=== PATIENT | female | born 1980 | race Caucasian/White ===

== ENCOUNTER 2017-10-20 23:30 | Emergency (ER) | payer OTHER ==
[2017-10-20] MEDS ORDERED: ONDANSETRON INJ 2 MG/ML 2 ML VIAL ONE (23:48)
[2017-10-20] MEDS ORDERED: LORAZEPAM 2 MG/ML 1 ML VIAL ONE (23:49)
[2017-10-20] MEDS ORDERED: SODIUM CHLORIDE 0.9% 500ML 500 ML IV STA (23:59)
[2017-10-21 00:02] VITALS: O2SAT 94
[2017-10-21] MEDS ORDERED: LORAZEPAM 2 MG/ML 1 ML VIAL IV STA ×2 (00:08→01:10)
[2017-10-21 00:14] LABS: BASO % 0.5 %; BASO ABS # 0.04 K/uL (0-0.2); EOS % 0.7 %; EOS ABS # 0.05 K/uL (0-0.5); HEMATOCRIT 40.1 % (37-47); HEMOGLOBIN 13.7 g/dL (12.0-16.0); IG# 0.03 K/uL (0.00-0.02); LYMPH % 33.3 %; LYMPH ABS # 2.49 K/uL (1.2-3.4); MEAN CORPUSCULAR HEMOGLOBIN 29.7 pg (25-34); MEAN CORPUSCULAR HGB CONC 34.2 g/dl (32-36); MONO % 3.7 %; MONO ABS # 0.28 K/uL (0.11-0.59); NEUT % 61.4 %; NEUT ABS # 4.58 K/uL (1.4-6.5); PLATELET COUNT 231 K/uL (130-400); RED CELL DISTRIBUTION WIDTH CV 13.1 % (11.5-14.5); RED CELL DISTRIBUTION WIDTH SD 42.1 fL (36.4-46.3); WHITE BLOOD COUNT 7.47 K/uL (4.8-10.8)
[2017-10-21] MEDS ORDERED: OPTIRAY 320 IV PRN (00:15)
[2017-10-21 00:30] LABS: ALBUMIN 4.4 gm/dl (3.4-5.0); ALT/SGPT 33 U/L (12-78); BLOOD UREA NITROGEN 12 mg/dl (7-18); CALCIUM 9.3 mg/dl (8.5-10.1); CARBON DIOXIDE 26 mmol/L (21-32); CREATININE 0.88 mg/dl (0.60-1.20); GLUCOSE 113 mg/dl (70-99); LIPASE 157 U/L (73-393); POTASSIUM 3.4 mmol/L (3.5-5.1); SODIUM 141 mmol/L (136-145)
[2017-10-21 00:35] LABS: ALKALINE PHOSPHATASE 58 U/L (45-117); AST/SGOT 27 U/L (15-37); TOTAL PROTEIN 7.9 gm/dl (6.4-8.2)
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
[2017-10-21] MEDS ORDERED: ACETAMINOPHEN 500 MG TAB PO STA (05:19)
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
[2017-10-21] MEDS ORDERED: KETOROLAC TROMETHAMINE 30 MG/ML VIAL IV STA (08:29)
[2017-10-21] MEDS ORDERED: FLUO40CA8 PO (08:32)
[2017-10-21] MEDS ORDERED: TOPI200T14 PO (09:43)
[2017-10-21] MEDS ORDERED: TRAZ100T29 PO (09:43)
[2017-10-21] MEDS ORDERED: LITH300T2 PO (09:43)
[2017-10-21] MEDS ORDERED: PARO1TAB29 PO (09:43)
[2017-10-21] MEDS ORDERED: PRAZ5CAP2 PO (10:27)
[2017-10-21] MEDS ORDERED: LITH1TAB10 PO (10:27)
[2017-10-21] MEDS ORDERED: NRN600 PO (10:27)
[2017-10-21] MEDS ORDERED: FLUO20CA35 PO (10:27)
[2017-10-21] MEDS ORDERED: HYDR25CA PO (10:27)
[2017-10-21] MEDS ORDERED: CTP/1 PO (10:27)
[2017-10-21 11:04] VITALS: BP 117/79; PULSE 88; TEMP 36.6; O2SAT 96
== END 2017-10-21 11:07 | disposition home or self-care (01) ==
LOC: EDBD 23:30 → C.EDA 23:34
DX: R07.81 Pleurodynia (principal); V89.2XXA Person injured in unspecified motor-vehicle accident, traffic, initial encounter; F10.920 Alcohol use, unspecified with intoxication, uncomplicated; Y90.8 Blood alcohol level of 240 mg/100 ml or more; F31.9 Bipolar disorder, unspecified; F43.10 Post-traumatic stress disorder, unspecified; F20.9 Schizophrenia, unspecified; Z79.899 Other long term (current) drug therapy; F41.9 Anxiety disorder, unspecified